=== PATIENT | female | born 1965 | race Caucasian/White ===

== ENCOUNTER → 2018-04-17 12:58 | Outpatient (CLI) | payer OTHER, SELFPAY ==
--- NOTE | 2018-04-17 13:02 | DI.RAD.S_ITS ---
PROCEDURE: XR WRIST LT MIN 3V INDICATIONS: Fall on Left wrist/elbow TECHNIQUE: 4 views of the wrist were acquired. COMPARISON: [facility], CR, XR FOREARM LT 2V, 04/17/2018, 12:40. FINDINGS: Bones: No fractures or dislocations. No suspicious bony lesions. Scaphoid view: No visualized fracture. Soft tissues: No suspicious soft tissue calcifications. IMPRESSION: No visualized acute fracture or dislocation. However, if clinical concern and/or pain persist, short interval imaging followup in 7-10 days is recommended, as occult injury cannot be definitively excluded. Dictated by: Malena Flores M.D. on 04/17/2018 at 13:25 Approved by: Malena Flores M.D. on 04/17/2018 at 13:25
--- NOTE | 2018-04-17 13:02 | DI.RAD.S_ITS ---
PROCEDURE: XR ELBOW LT MIN 3V INDICATIONS: Fall on Left wrist/elbow TECHNIQUE: 3 views of the elbow were acquired. COMPARISON: [facility], CR, XR FOREARM LT 2V, 04/17/2018, 12:40. FINDINGS: Bones: There is a non-displaced cortical step-off of the proximal radial head as well as a small adjacent area of ossification. Soft tissues: Mild elbow joint effusion. No suspicious soft tissue calcifications. IMPRESSION: Nondisplaced proximal radial head fracture. Dictated by: Malena Flores M.D. on 04/17/2018 at 13:22 Approved by: Malena Flores M.D. on 04/17/2018 at 13:23
--- NOTE | 2018-04-17 13:02 | DI.RAD.S_ITS ---
PROCEDURE: XR FOREARM RT 2V INDICATIONS: Fall on Left wrist/elbow TECHNIQUE: 2 views of the forearm were acquired. COMPARISON: [facility], CR, XR WRIST LT MIN 3V, 04/17/2018, 12:40. [facility], CR, XR ELBOW LT MIN 3V, 04/17/2018, 12:40. FINDINGS: Bones: Nondisplaced proximal radial head cortical step-off is present. Effusion is present at the elbow. Soft tissues: No suspicious soft tissue calcifications or masses. IMPRESSION: Proximal radial head fracture. See elbow x-ray report of 04/17/18 for further details. Dictated by: Malena Flores M.D. on 04/17/2018 at 13:23 Approved by: Malena Flores M.D. on 04/17/2018 at 13:24
== END ==
PROVIDERS: Visit Provider Physician Assistant
DX: S52.125A Nondisplaced fracture of head of left radius, initial encounter for closed fracture (principal); M25.532 Pain in left wrist
CPT/HCPCS: 73080; 73090; 73110